=== PATIENT | female | born 1945 | race Caucasian/White ===

== ENCOUNTER 2021-02-27 18:07 | Outpatient (CLI) | payer MEDICARE | END 2021-02-27 18:08 | disposition critical access hospital (66) | LOC: EMS 18:07 | DX: R55 Syncope and collapse (principal) | CPT/HCPCS: A0425; A0427 ==

== ENCOUNTER 2021-02-27 18:44 | Emergency (ER) | payer MEDICARE ==
[2021-02-27] MEDS ORDERED: SODIUM CHLORIDE 0.9% 1,000 ML IV STA (19:17)
[2021-02-27 19:30] LABS: BASOPHILS % (AUTO) 0.4 %; EOSINOPHILS # (AUTO) 0.1 10^3/uL (0.0-0.7); EOSINOPHILS % (AUTO) 1.2 %; HCT - HEMATOCRIT 42.5 % (37.0-47.0); HGB - HEMOGLOBIN 13.4 g/dL (12.0-16.0); LYMPHOCYTES # (AUTO) 1.4 10^3/uL (1.5-3.5); LYMPHOCYTES % (AUTO) 16.3 %; MEAN CORPUSCULAR HEMOGLOBIN 28.3 pg (27.0-31.0); MEAN CORPUSCULAR HGB CONC 31.5 g/dL (32.0-36.0); MEAN CORPUSCULAR VOLUME 89.7 fL (81.0-99.0); MEAN PLATELET VOLUME 9.4 fL (7.9-10.8); MONOCYTES # (AUTO) 0.7 10^3/uL (0.0-1.0); MONOCYTES % (AUTO) 8.4 %; NEUTROPHILS # (AUTO) 6.1 10^3/uL (1.5-6.6); NEUTROPHILS % (AUTO) 73.2 %; PLT - PLATELET COUNT 176 10^3/uL (130-450); RED BLOOD COUNT 4.74 10^6/uL (4.20-5.40); RED CELL DISTRIBUTION WIDTH 12.9 % (12.0-15.0); WHITE BLOOD COUNT 8.3 x10^3/uL (4.8-10.8)
--- NOTE | 2021-02-27 19:36 | XRAY Report ---
PROCEDURE: Chest 1 View X-Ray INDICATIONS: Chest Pain TECHNIQUE: One view of the chest was acquired. COMPARISON: None FINDINGS: Surgical changes and devices: None. Lungs and pleura: No pleural effusions or pneumothorax. Lungs are clear. Mediastinum: Mediastinal contours appear normal. Heart size is enlarged. Bones and chest wall: No suspicious bony lesions. Overlying soft tissues appear unremarkable. IMPRESSION: No acute cardiopulmonary pathology. Reviewed by: Ezio Díaz MD on 02/27/2021 7:35 PM PDT Approved by: Ezio Díaz MD on 02/27/2021 7:35 PM PDT Station ID: [id number]
[2021-02-27 19:41] LABS: ALBUMIN/GLOBULIN RATIO 1.6 (1.0-2.2); BILIRUBIN,TOTAL 1.2 mg/dL (0.2-1.0); CALCIUM 9.3 mg/dL (8.5-10.3); CREATININE 0.8 mg/dL (0.4-1.0); POTASSIUM 4.2 mmol/L (3.5-5.0); TOTAL PROTEIN 6.5 g/dL (6.7-8.2)
--- NOTE | 2021-02-27 19:41 | ED Physician Documentation ---
History of Present Illness - Stated complaint Stated Complaint: SYNCOPE - Chief complaint Chief Complaint: Neuro - History obtained from History obtained from: Patient - History of Present Illness Timing: Today Pain level max: 0 Pain level now: 0 - Additonal information Additional information: Patient is a 75-year-old female who presents to the emergency department stating that she had a syncopal event today. 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 Has not eaten anything since yesterday. She states she did have a glass of water earlier today but is otherwise not had anything to drink. She states that she did have a syncopal event. Bystanders states she was out for 1 to 2 seconds. EMS arrived and blood pressure was low. She is diabetic. Nothing makes it better or worse. Currently feels normal. Review of Systems Ten Systems: 10 systems reviewed and negative Constitutional: denies: Fever, Chills Nose: denies: Rhinorrhea / runny nose, Congestion GI: denies: Nausea, Vomiting, Diarrhea Skin: denies: Rash Musculoskeletal: denies: Neck pain, Back pain Neurologic: denies: Headache PD PAST MEDICAL HISTORY - Allergies Allergies/Adverse Reactions: Allergies Allergy/AdvReac Type Severity Reaction Status Date / Time No Known Drug Allergies Allergy Verified 02/27/21 18:54 PD ED PE NORMAL - Vitals Vital signs reviewed: Yes - General General: Alert and oriented X 3, No acute distress, Well developed/nourished - HEENT HEENT: PERRL, Moist mucous membranes - Neck Neck: Supple, no meningeal sign, No JVD, No bruit - Cardiac Cardiac: RRR, No murmur, Strong equal pulses - Respiratory Respiratory: No respiratory distress, Clear bilaterally - Abdomen Abdomen: Soft, Non tender, Non distended - Derm Derm: Warm and dry - Extremities Extremities: No edema, No calf tenderness / cord - Neuro Neuro: Alert and oriented X 3, 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, No motor deficit, No sensory deficit, Normal speech Eye Opening: Spontaneous Motor: Obeys Commands Verbal: Oriented GCS Score: 15 - Psych Psych: Normal mood, Normal affect - Free text exam Free text exam: NIH stroke scale of zero Results - Vitals Vitals: Vital Signs - 24 hr 02/27/21 02/27/21 02/27/21 18:48 20:00 20:24 Temperature 36.6 C 36.5 C Heart Rate 68 74 72 Respiratory 16 20 15 Rate Blood Pressure 118/63 124/65 122/68 O2 Saturation 99 98 100 Oxygen O2 Source Room air - EKG (time done) 1929 Rate: Rate (enter#) (68) Rhythm: NSR [place]: Normal Intervals: Normal VA QRS: Normal Ischemia: Normal ST segments, Q waves (III, aVF, v1-2) - Labs Labs: Laboratory Tests 02/27/21 02/27/21 02/27/21 19:23 19:23 19:23 WBC 8.3 RBC 4.74 Hgb 13.4 Hct 42.5 MCV 89.7 MCH 28.3 MCHC 31.5 L RDW 12.9 Plt Count 176 MPV 9.4 Neut # (Auto) 6.1 Lymph # (Auto) 1.4 L [place] # (Auto) 0.7 Eos # (Auto) 0.1 Baso # (Auto) 0.0 Absolute Nucleated RBC 0.00 Nucleated RBC % 0.0 Sodium 137 Potassium 4.2 Chloride 101 Carbon Dioxide 26 Anion Gap 10.0 BUN 16 Creatinine 0.8 Estimated GFR (MDRD) 70 L Glucose 149 H Calcium 9.3 Total Bilirubin 1.2 H AST 22 ALT 23 Alkaline Phosphatase 69 Troponin I High Sens 3.1 Total Protein 6.5 L Albumin 4.0 Globulin 2.5 Albumin/Globulin Ratio 1.6 Lipase 36 - Rads (name of study) cxr Radiology: Final report received, EMP read contemporaneously, See rad report (No acute cardiopulmonary pathology. ) PD MEDICAL DECISION MAKING - ED course Complexity details: reviewed results, re-evaluated patient, considered differential, d/w patient ED course: Patient feels better after IV fluids and eating. Asymptomatic here. Likely related to not eating for the past 24 hours combined with cooking or a hot stove. Blood pressure improved, reportedly low with EMS on scene. Improved with IV fluids here. Patient does not want to stay in the hospital for observation and telemetry monitoring. She states she will follow up with her doctor for further care. Has never passed out before. Patient counseled r egarding signs and symptoms for which I believe and urgent re-evaluation would be necessary. Patient with good understanding of and agreement to plan and is comfortable going home at this time This document was made in part using voice recognition software. While efforts are made to proofread this document, sound alike and grammatical errors may occur. Departure - Departure Disposition: 01 Home, Self Care Clinical Impression: Vasovagal episode Syncope Qualifiers: Syncope type: vasovagal syncope Qualified Code(s): R55 - Syncope and collapse Condition: Good Instructions: ED Syncope Vasovagal Follow-Up: MAMTA LE PA [Primary Care Provider] - Within 1 week Comments: Make sure to eat and drink regularly. Please follow-up with your doctor this week for further evaluation. Return if you worsen. Discharge Date/Time: 02/27/21 20:25
[2021-02-27 20:25] VITALS: BP 122/68
== END 2021-02-27 20:25 | disposition home or self-care (01) ==
LOC: ED 18:44
DX: R55 Syncope and collapse (principal); E11.9 Type 2 diabetes mellitus without complications
CPT/HCPCS: 36415; 80053; 83690; 84484; 85025; 93005; 99284

== ENCOUNTER 2022-04-22 11:11 | Emergency (ER) | payer MEDICARE ==
--- NOTE | 2022-04-22 11:53 | XRAY Report ---
PROCEDURE: Shoulder 3 View LT INDICATIONS: trauma TECHNIQUE: 3 views of the shoulder were acquired. COMPARISON: None. FINDINGS: Bones: Moderately displaced and angled glide fracture of the humeral head/neck. No suspicious bony le sions. Visualized ribs appear intact. Soft tissues: No suspicious soft tissue calcifications. IMPRESSION: Proximal humeral fracture as above. Reviewed by: Hilary Phipps MD on 04/22/2022 11:51 AM PDT Approved by: Hilary Phipps MD on 04/22/2022 11:51 AM PDT Station ID: [id number]
[2022-04-22] MEDS ORDERED: HYDROmorphone 1 MG/ML CARPUJECT IM STA ×2 (11:54→12:28)
[2022-04-22] MEDS ORDERED: ONDANSETRON ODT 4 MG TABLET TL STA (11:54)
--- NOTE | 2022-04-22 11:56 | ED Physician Documentation ---
History of Present Illness - Stated complaint Stated Complaint: FALL - Chief complaint Chief Complaint: Trauma Ext - History obtained from History obtained from: Patient, Family - Additonal information Additional information: 77-year-old woman presents for the evaluation of mostly left shoulder pain after a fall. Most of the history is from the as he prefers to speak, wonder if she may be mildly demented,. She was ambulating into the carport and there is a small ledge there with a change in surface and she fell forward into her left. She hit her head and had a wound on the left adventism from her glasses which broke. There was no loss of consciousness and she denies headache. Mostly the pain is in her left shoulder which is severe. She also has an abrasion on the right knee but no pain there and she has been ambulatory. Review of Systems Constitutional: reports: Reviewed and negative Eyes: reports: Reviewed and negative Cardiac: reports: Reviewed and negative Respiratory: reports: Reviewed and negative PD PAST MEDICAL HISTORY - Present Medications Home Medications: Ambulatory Orders Medication Instructions Recorded Confirmed HYDROcod/ACETAM 5/325 [[place] 5/325] 1 - 2 tab PO Q6H PRN #30 tablet 04/22/22 - Allergies Allergies/Adverse Reactions: Allergies Allergy/AdvReac Type Severity Reaction Status Date / Time No Known Drug Allergies Allergy Verified 04/22/22 11:21 PD ED PE NORMAL - Vitals Vital signs reviewed: Yes - General General: Alert and oriented X 3, No acute distress - HEENT HEENT: PERRL, EOMI, Other (There is a puncture wound on the left adventism which is hemostatic.) - Neck Neck: Supple, no meningeal sign, No bony TTP - Cardiac Cardiac: RRR, No murmur - Respiratory Respiratory: No respiratory distress, Clear bilaterally - Abdomen Abdomen: Normal bowel sounds, Soft, Non tender - Back Back: No CVA TTP, No spinal TTP - Derm Derm: Normal color, Warm and dry - Extremities Extremities: Other (She is unable to range the left shoulder at all due to pain and she is exquisitely tender over the proximal humerus there. She has normal neurovascular function in the left hand. There is an abrasion over the left knee but absolutely no tenderness or limited range of motion there.) - Neuro Neuro: Alert and oriented X 3, Normal speech Eye Opening: Spontaneous Motor: Obeys Commands Verbal: Oriented GCS Score: 15 Results - Vitals Vitals: Vital Signs - 24 hr 04/22/22 11:17 Temperature 36.4 C L Heart Rate 62 Respiratory 16 Rate Blood Pressure 161/73 H O2 Saturation 97 Oxygen O2 Source Room air - Rads (name of study) Three-view x-ray of the left shoulder demonstrates a displaced and angled humeral head and neck fracture. Radiology: EMP read contemporaneously CT of the head and cervical spine are negative for injury. Radiology: EMP read contemporaneously PD MEDICAL DECISION MAKING - ED course ED course: 77-year-old woman presents after ground-level fall, she has signs of a mild head injury but CT imaging there is negative. She does have a shoulder fracture in the proximal humerus and was placed in a sling after pain control and discussed need for follow-up, mostly with her as she is seemingly demented. Departure - Departure Disposition: 01 Home, Self Care Clinical Impression: Closed fracture of left proximal humerus Qualifiers: Encounter type: initial encounter Fracture alignment: displaced Head injury Qualifiers: Encounter type: initial encounter Qualified Code(s): S09.90XA - Unspecified injury of head, initial encounter Condition: Good Record reviewed to determine appropriate education?: Yes Instructions: ED Fx Upper Ext Follow-Up: [facility] [Provider Group] - Within 1 week Prescriptions: HYDROcod/ACETAM 5/325 [[place] 5/325] 1 - 2 tab PO Q6H PRN #30 tablet PRN Reason: Pain Comments: I sent your prescription for pain medication electronically to the [facility] in [place]. If pain is mild you can simply take Tylenol per package instructions. Follow-up with the orthopedist, call today for an appointment within a week to 10 days. Return for new or worsening symptoms. I am prescribing a short course of narcotic pain medication for you. These are potentially dangerous and addictive medications that should be used carefully. These medications may constipate you. Take an cnni-ncj-jbtduat stool softener (docusate) twice daily with plenty of water while taking these medications. If you go 24 hours without a bowel movement, take hcwn-yxf-wgeopgg miralax, per package instructions. Do not drink or drive while taking these medications. If you received narcotic or sedating medications while in the emergency department, do not drive for 24 hours. Store this medication in a safe, secure place and out of reach of children. It is a violation of federal law to give or sell this medication to another person or to use in a manner other than prescribed. The ED will not refill narcotic prescriptions, including prescriptions lost or stolen. To dispose of unwanted medications: 1. [facility] at [address] in [place] has a medication drop box. They accept prescription medications (in pill form) Tuesday through Tuesday 9:00 a.m. to 5:00 p.m. 2. The [facility] accepts prescription medications (in pill form only) for disposal year round. Call for more information. 3. Contact the [facility] for the next [facility] sponsored prescription drug collection event. , [phone], or [phone]; Note that many narcotic pain relievers also contain Tylenol/acetaminophen. Please ensure that your total dose of acetaminophen from all sources does not exceed 3 g (3000 mg) per day.
--- NOTE | 2022-04-22 12:42 | CT Report ---
PROCEDURE: HEAD WO INDICATIONS: head inj TECHNIQUE: Noncontrast 4.5 mm thick angled axial sections acquired from the foramen magnum to the vertex. For r adiation dose reduction, the following was used: automated exposure control, adjustment of mA and/or kV according to patient size. COMPARISON: None. FINDINGS: Image quality: Excellent. CSF spaces: Basal cisterns are patent. No extra-axial fluid collections. Ventricles are normal in size and shape. Brain: No midline shift. No intracranial masses or hemorrhage. [place]-white matter interface is norm al. Skull and face: Calvarium and visualized facial bones are intact, without suspicious lesions. Sinuses: Visualized sinuses and mastoids are clear. IMPRESSION: No acute intracranial abnormality. Reviewed by: Hilary Phipps MD on 04/22/2022 12:41 PM PDT Approved by: Hilary Phipps MD on 04/22/2022 12:41 PM PDT Station ID: [id number]
--- NOTE | 2022-04-22 12:43 | CT Report ---
PROCEDURE: CERVICAL SPINE WO INDICATIONS: head inj TECHNIQUE: Noncontrast 3 mm thick sections acquired from the skull base to the T4 level. Sagittal and coronal r eformats were then constructed. For radiation dose reduction, the following was used: automated exp osure control, adjustment of mA and/or kV according to patient size. COMPARISON: None. FINDINGS: Image quality: Excellent. Bones: No fractures or dislocations. Visualized superior ribs are intact. Soft tissues: Prevertebral soft tissues are normal in thickness. No paravertebral hematomas. No ap ical pneumothoraces. IMPRESSION: No fracture. Reviewed by: Hilary Phipps MD on 04/22/2022 12:42 PM PDT Approved by: Hilary Phipps MD on 04/22/2022 12:42 PM PDT Station ID: [id number]
[2022-04-22 13:21] VITALS: BP 179/77
== END 2022-04-22 13:20 | disposition home or self-care (01) ==
LOC: ED 11:11
DX: S09.90XA Unspecified injury of head, initial encounter (principal); S42.202A Unspecified fracture of upper end of left humerus, initial encounter for closed fracture; W01.0XXA Fall on same level from slipping, tripping and stumbling without subsequent striking against object, initial encounter
CPT/HCPCS: 70450; 72125; 73030; 99284; J1170; Q0162

== ENCOUNTER 2022-06-08 08:00 | Outpatient (CLI) | payer MEDICARE ==
--- NOTE | 2022-06-08 15:48 | XRAY Report ---
PROCEDURE: Shoulder 3 View LT INDICATIONS: LEFT SHOULDER FRACTURE TECHNIQUE: 3 views of the shoulder were acquired. COMPARISON: 04/22/2022. FINDINGS/IMPRESSION: No significant change in alignment of highly comminuted intra-articular, displaced, angulated left hu meral head/neck fracture when compared with 04/22/2022 exam. Reviewed by: Americo Singleton MD on 06/08/2022 3:46 PM PDT Approved by: Americo Singleton MD on 06/08/2022 3:46 PM PDT Station ID: [id number]
== END 2022-06-08 23:59 | disposition home or self-care (01) ==
LOC: DI.WOS 08:00
PROVIDERS: ATTEND Physician Assistant Surgical
DX: S42.232D 3-part fracture of surgical neck of left humerus, subsequent encounter for fracture with routine healing (principal)

== ENCOUNTER 2022-07-20 12:38 | Outpatient (CLI) | payer MEDICARE ==
--- NOTE | 2022-07-20 13:22 | DEXA Report ---
PROCEDURE: Dexa Spine and/or Hip INDICATIONS: SCREENING FOR OSTEOPOROSIS TECHNIQUE: Dual energy x-ray absorptiometry (DXA) was performed on a Biom'Up System. Regions measur ed are the AP Spine, femoral neck, and if needed forearm. COMPARISON: None. FINDINGS: Lumbar Spine: Bone Mineral Density 1.140 g/cm/cm,T score -0.5, normal Left Femoral Neck: Bone Mineral Density 0.802 g/cm/cm, T score -1.7, osteopenia Left total Hip: Bone Mineral Density 0.851 g/cm/cm,T score -1.2, osteopenia (T score greater or equal to -1.0: NORMAL) (T score from -1.1 to -2.4: OSTEOPENIA) (T score less than or equal to -2.5 to: OSTEOPOROSIS) Impression: Osteopenia Patients with diagnosis of osteoporosis or osteopenia should have regular bone mineral density assess ment. For those eligible for Medicare, routine testing is allowed once every 2 years. Testing frequ ency can be increased for patients who have rapidly progressing disease or for those who are receivin g medical therapy to restore bone mass. Reviewed by: Sree Ingram on 07/20/2022 1:21 PM PST Approved by: Sree Ingram on 07/20/2022 1:21 PM PST Station ID: [id number]
== END 2022-07-20 12:39 | disposition home or self-care (01) ==
LOC: DI 12:38
PROVIDERS: ATTEND Nurse Practitioner Family
DX: Z13.820 Encounter for screening for osteoporosis (principal); M85.89 Other specified disorders of bone density and structure, multiple sites

== ENCOUNTER 2024-11-22 12:35 | Observation (INO) ==
--- NOTE | 2024-11-22 12:43 | ED Physician Documentation ---
History of Present Illness Stated complaint Stated Complaint: CONFUSION Chief complaint Chief Complaint: General History obtained from History obtained from: Patient and EMS Additonal information Additional information: This is an 79-year-old woman with history of dementia, type 2 diabetes, who lives alone. She lost her about 2 months ago from pancreatic cancer and her son lives close by and checks on her frequently. Reportedly she was normal last night at 7 PM, but today she either fell or lowered herself to the ground without apparent injury and her son found her. [place] there was maybe some slur red speech. Patient has no complaints. [place] Coma Scale Assess Eye opening: Spontaneous Verbal response: Confused Motor response: Obeys Commands Total score: 14 Meds/Allgy Home Medications Ambulatory Orders Medication Instructions Recorded Confirmed sertraline 50 mg tablet 50 mg PO QDAY #30 tabs 10/31/24 11/21/24 antiarthritic combination no.2 900 mg PO 11/01/24 11/21/24 mg tablet (glucosamine-chondroitin) cholecalciferol (vitamin D3) 50 50 mcg PO QDAY 11/01/24 11/21/24 mcg (2,000 unit) capsule iinxgind-ahl-tqzkd acid 0.4 1 tab PO QDAY 11/01/24 11/21/24 mg-lycopene 300 mcg-lutein 250 mcg tablet (Complete Multivitamin Adult 50 Plus) nystatin 100,000 unit/gram topical 1 applic topical BID #30 grams 11/01/24 11/21/24 cream zinc oxide 12 % topical cream 1 applic topical TID 11/01/24 11/21/24 acetaminophen 500 mg tablet 500 - 1,000 mg (1 - 2 x 500 mg) PO 11/21/24 11/21/24 Q6H PRN pain #100 tabs Allergies Allergies Allergy/AdvReac Type Severity Reaction Status Date / Time No Known Drug Allergies Allergy Verified 11/22/24 12:46 PFSH Active Problems All Active Problems (Updated 11/22/24 @ 16:11 by Diego Coy MD) Leukocytosis (Acute) Acute UTI (Acute) Encephalopathy (Acute) Heart murmur (Acute) Osteoarthritis of right knee (Acute) Type 2 diabetes mellitus (Acute) Candidal intertrigo (Acute) Dementia with mood disturbance (Acute) Right knee pain (Acute) Medical History Medical History (Updated 11/22/24 @ 16:11 by Diego Coy MD) History of skin cancer of unknown type Large excision site left lateral knee region Cognitive deficits History of recent fall Family History Family History (Updated 11/01/24 @ 12:13 by RYAN Guillen, MSN) Mother Cancer Father Cancer Social History Social History (Updated 11/01/24 @ 12:12 by RYAN Guillen, MSN) Smoking Status: Former smoker If you are a former smoker, when did you quit? 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 When I ask her the month she says first January, then corrects herself to February, cannot come up with the year but cannot state who the president is. Eyes PERRL and EOMs intact bilaterally Respiratory breath sounds equal bilaterally, normal respiratory effort and clear to auscultation bilaterally Cardiovascular normal heart rate noted, regular rhythm noted and no murmur Gastrointestinal abdomen soft to palpation and nontender to palpation Genitourinary no CVA tenderness Back/Pelvis no thoracic spine tenderness and no lumbar spine tenderness Neurology GCS calculation - Eye opening: Spontaneous Verbal response: Confused Motor response: Obeys Commands [place] Coma Scale total score: 14 Results Vitals Vitals: Vital Signs - 24 hr 11/22/24 12:41 11/22/24 13:15 11/22/24 14:49 Temperature 36.0 C L Temperature Source Tympanic Pulse Rate 63 57 L 76 Respiratory Rate 18 17 15 Blood Pressure 142/74 H 163/74 H 163/70 H O2 Saturation 96 98 95 O2 Source Room air Room air Room air Pain Intensity 0 0 0 Oxygen O2 Source Room air EKG (time done) 1247: EKG releavant findings:: EKG personally interpreted by author of this note. Relevant findings are: Normal sinus rhythm with rate of 60 with frequent PACs, borderline LAD, low voltage, no ST elevation or depression. Labs Labs: Laboratory Tests 11/22/24 11/22/24 12:54 13:11 WBC 12.2 H RBC 4.85 Hgb 14.3 Hct 43.7 MCV 90.1 MCH 29.5 MCHC 32.7 RDW 11.8 L Plt Count 196 MPV 9.3 Neut # (Auto) 10.1 H Lymph # (Auto) 1.0 L [place] # (Auto) 1.0 Eos # (Auto) 0.0 Baso # (Auto) 0.0 Absolute Nucleated RBC 0.00 Nucleated RBC % 0.0 Sodium 137 Potassium 3.6 Chloride 105 Carbon Dioxide 25 Anion Gap 7.0 BUN 20 Creatinine 0.7 Estimated GFR (MDRD) 80 L Glucose 177 H Calcium 9.7 Magnesium 1.8 Total Bilirubin 0.9 AST 24 ALT 21 Alkaline Phosphatase 81 Total Protein 6.7 Albumin 4.1 Globulin 2.6 Albumin/Globulin Ratio 1.6 Urine Color YELLOW Urine Clarity SL. CLOUDY Urine pH 6.0 Ur Specific [place] 1.025 Urine Protein NEGATIVE Urine Glucose (UA) NEGATIVE Urine Ketones 40 H Urine Occult Blood NEGATIVE Urine Nitrite NEGATIVE Urine Bilirubin NEGATIVE Urine Urobilinogen 0.2 (NORMAL) Ur Leukocyte Esterase MODERATE H Urine RBC 0-5 Urine WBC 11-25 H Ur Squamous Epith Cells FEW Squamous Urine Bacteria Many H Ur Microscopic Review INDICATED Urine Culture Comments INDICATED Urine Opiates Screen NEGATIVE Ur Buprenorphine Scrn NEGATIVE Ur Oxycodone Screen NEGATIVE Urine Methadone Screen NEGATIVE Ur Barbiturates Screen NEGATIVE Ur Tricyclics Screen NEGATIVE Ur Phencyclidine Scrn NEGATIVE Ur Amphetamine Screen NEGATIVE U Methamphetamines Scrn NEGATIVE U Benzodiazepines Scrn NEGATIVE Urine Cocaine Screen NEGATIVE U Cannabinoids Screen NEGATIVE Ur Drug Screen Comment CUTOFF CONC BELOW: Ethyl Alcohol < 10.0 Rads (name of study) CT/CTA negative per Dr. Graf by phone (PACS is down so no formal read available).: Relevant Findings:: Prelim report reviewed, Discussed with rads and EMP independent interpretation of test (NAD) PD Medical Decision Making ED course ED course: This is an 79-year-old woman with dementia who appears off of her neurologic baseline. I do not personally seen any sign of stroke, but it is in the differential. Last known normal 7 PM last night. She has a nonlateralizing/nonfocal exam. I do not think she is a tPA candidate. Labs done showing mild leukocytosis, pyuria, negative drug screening, unremarkable CMP save mild hyperglycemia. Son arrived and noted that she was orthostatic prehospital which was not reported to me from EMS. Will start fluids and antibiotics pending CT radiography. CT radiography was negative, given the leukocytosis, encephalopathy, and UTI we will bring her in to obs status to monitor for improvement. Spoke with KURTIS Fontaine for same at 4:05 PM. The patient and family are counseled as to the diagnosis and need for admission. This document was made in part using voice recognition software, while efforts are made to proofread this document, sound alike an grammatical errors may occur. Discharge Plan Discharge Patient Disposition: ED Place in Observation Condition: Fair Clinical Impression: Encephalopathy, Acute UTI, Leukocytosis Dementia with mood disturbance Qualifiers: Dementia type: Alzheimer's Alzheimer's disease onset: unspecified onset Dementia severity: moderate Qualified Code(s): G30.9 - Alzheimer's disease, unspecified Interventions: ED Admission Assessment Last Done: 11/22/24 18:11
[2024-11-22 12:59] LABS: BASOPHILS % (AUTO) 0.3 %; EOSINOPHILS % (AUTO) 0.1 %; HCT - HEMATOCRIT 43.7 % (37.0-47.0); HGB - HEMOGLOBIN 14.3 g/dL (12.0-16.0); LYMPHOCYTES % (AUTO) 7.9 %; MEAN CORPUSCULAR HEMOGLOBIN 29.5 pg (27.0-31.0); MEAN CORPUSCULAR HGB CONC 32.7 g/dL (32.0-36.0); MEAN CORPUSCULAR VOLUME 90.1 fL (81.0-99.0); MEAN PLATELET VOLUME 9.3 fL (7.9-10.8); MONOCYTES % (AUTO) 8.1 %; NEUTROPHILS # (AUTO) 10.1 10^3/uL (1.5-6.6); NEUTROPHILS % (AUTO) 83.2 %; PLT - PLATELET COUNT 196 10^3/uL (130-450); RED BLOOD COUNT 4.85 10^6/uL (4.20-5.40); RED CELL DISTRIBUTION WIDTH 11.8 % (12.0-15.0); WHITE BLOOD COUNT 12.2 x10^3/uL (4.8-10.8)
[2024-11-22] MEDS ORDERED: iohexoL-300 100 ML VIAL ONE (13:00)
--- OUTSIDE RECORDS SUMMARY | 2024-11-22 13:00 | EXTERNAL MEDICAL SUMMARY RPT | Continuity of Care Document ---
Author Organization [facility] Address [address] [place] [id number] Phone Problems date description facility 2024-09-01 00:01 Other symptoms and s igns involving cognitive functions and awareness [facility] 2024-09-01 00:01 History of falling [facility] 2024-09-12 09:21 Pain in right knee [facility] 2024-11-01 12:12 Unspecified dementia , unspecified severity, with mood disturbance [email or web address] 2024-11-01 12:25 Unspecified dementia , unspecified severity, with mood disturbance [email or web address] 2024-11-06 10:52 Candidiasis of skin and nail [email or web address] 2024-11-06 10:52 Type 2 diabetes mellitus withou t complications [email or web address] 2024-11-06 10:52 Dementia in other di seases classified elsewhere, moderate, with mood disturbance [email or web address] 2024-11-06 10:52 Unspecified dementia , unspecified severity, with mood disturbance [email or web address] 2024-11-06 10:52 Alzheimer's disease, unspecifie d [email or web address] 2024-11-06 10:52 Unilateral primary osteoarthrit is, right knee [email or web address] 2024-11-06 10:52 Encounter for palliative care [facility] 2024-11-06 10:52 Personal history of other malig nant neoplasm of skin [facility] 2024-11-19 08:40 Encounter for palliative care [facility] Social History date description facility
[2024-11-22 13:13] LABS: ALBUMIN 4.1 g/dL (3.2-5.5); ALBUMIN/GLOBULIN RATIO 1.6 (1.0-2.2); ALKALINE PHOSPHATASE 81 IU/L (42-121); ALT ALANINE AMINOTRANSFERASE 21 IU/L (10-60); AST ASPARTATE AMINOTRANSFERASE 24 IU/L (10-42); BILIRUBIN,TOTAL 0.9 mg/dL (0.2-1.0); BUN - BLOOD UREA NITROGEN 20 mg/dL (6-20); CALCIUM 9.7 mg/dL (8.5-10.3); CARBON DIOXIDE - CO2 25 mmol/L (21-32); CHLORIDE 105 mmol/L (101-111); CREATININE 0.7 mg/dL (0.6-1.3); ETOH - ETHANOL < 10.0 mg/dL; GFR - MDRD 80 (>89); GLUCOSE 177 mg/dL (74-104); MAGNESIUM 1.8 mg/dL (1.7-2.3); POTASSIUM 3.6 mmol/L (3.5-4.5); SODIUM 137 mmol/L (135-145); TOTAL PROTEIN 6.7 g/dL (6.4-8.9)
[2024-11-22 13:26] LABS: BILIRUBIN,URINE NEGATIVE (NEGATIVE); GLUCOSE, URINE (UA) NEGATIVE (NEGATIVE); KETONES,URINE (UA) 40 mg/dL (NEGATIVE); LEUKOCYTE ESTERASE, URINE MODERATE (NEGATIVE); NITRITE,URINE NEGATIVE (NEGATIVE); OCCULT BLOOD,URINE NEGATIVE (NEGATIVE); PROTEIN,URINE NEGATIVE (NEGATIVE); UROBILINOGEN,URINE 0.2 (NORMAL) E.U./dL (NORMAL)
[2024-11-22 13:29] LABS: CLARITY,URINE SL. CLOUDY (CLEAR)
[2024-11-22 13:40] LABS: AMPHETAMINE SCREEN,URINE NEGATIVE (NEGATIVE); BACTERIA,URINE Many /HPF (None Seen); BARBITURATE SCREEN,UR NEGATIVE (NEGATIVE); BENZODIAZEPINES SCREEN, URINE NEGATIVE (NEGATIVE); BUPRENORPHINE SCREEN, URINE NEGATIVE (NEGATIVE); COCAINE SCREEN URINE NEGATIVE (NEGATIVE); METHADONE SCREEN, URINE NEGATIVE (NEGATIVE); METHAMPHETAMINES SCREEN, URINE NEGATIVE (NEGATIVE); OPIATE SCREEN, URINE NEGATIVE (NEGATIVE); OXYCODONE SCREEN, URINE NEGATIVE (NEGATIVE); RBC,URINE 0-5 /HPF (0-5); SQUAMOUS EPITHELIAL CELL,UR FEW Squamous (<= Few); THC CANNABINOID SCREEN, URINE NEGATIVE (NEGATIVE); TRICYCLIC ANTIDEPRESSANT,URINE NEGATIVE (NEGATIVE)
[2024-11-22] MEDS: cefTRIAXone 1 GM VIAL IVP STA (13:53)
[2024-11-22] MEDS: SODIUM CHLORIDE 0.9% 1,000 ML IV STA (13:53)
[2024-11-22] MEDS: iohexoL-300 100 ML VIAL IVP ONE (14:00)
[2024-11-22] MEDS ORDERED: ONDANSETRON 4 MG/2 ML VIAL IVP PRN ×2 (16:03→18:19)
--- NOTE | 2024-11-22 17:14 | HISTORY & PHYSICAL EXAMINATION ---
Chief Complaint Chief Complaint Chief Complaint: Fall History of Present Illness Admitted From Admitted From:: Home History Obtained From History obtained from: Patient Exam Limitations: Moderate dementia History of Present Illness HPI Comment/Other: 79-year-old female who recently lost her to pancreatic cancer. Her cared for at home and had taken over many of the administrative household tasks as she is slowly been developing dementia. She is seen by palliative care, with last visit yesterday. There is a note from her primary care physician from 08/24/2024, where she underwent [place] cognitive assessment with a score of 17 out of 30 indicating moderate dementia. Family reported multiple falls to her palliative care provider without injury. Family is in the process of getting her moved to a memory care unit, but patient adamantly refuses this. She was found down this morning by her caregiver and brought into the hospital. Son reports that her mentation is worse than normal. In the ER, workup was significant for UTI. She was given 1 g of Rocephin in the ER and hospitalist was contacted for observation for delirium on top of baseline moderate dementia Meds/Allgy Home Medications Ambulatory Orders Medication Instructions Recorded Confirmed sertraline 50 mg tablet 50 mg PO QDAY #30 tabs 10/31/24 11/21/24 antiarthritic combination no.2 900 mg PO 11/01/24 11/21/24 mg tablet (glucosamine-chondroitin) cholecalciferol (vitamin D3) 50 50 mcg PO QDAY 11/01/24 11/21/24 mcg (2,000 unit) capsule zlkeestd-nrk-vopqe acid 0.4 1 tab PO QDAY 11/01/24 11/21/24 mg-lycopene 300 mcg-lutein 250 mcg tablet (Complete Multivitamin Adult 50 Plus) nystatin 100,000 unit/gram topical 1 applic topical BID #30 grams 11/01/24 11/21/24 cream zinc oxide 12 % topical cream 1 applic topical TID 11/01/24 11/21/24 acetaminophen 500 mg tablet 500 - 1,000 mg (1 - 2 x 500 mg) PO 11/21/24 11/21/24 Q6H PRN pain #100 tabs Allergies Allergies Allergy/AdvReac Type Severity Reaction Status Date / Time No Known Drug Allergies Allergy Verified 11/22/24 12:46 PFSH Active Problems All Active Problems (Updated 11/22/24 @ 16:11 by Diego Coy MD) Leukocytosis (Acute) Acute UTI (Acute) Encephalopathy (Acute) Heart murmur (Acute) Osteoarthritis of right knee (Acute) Type 2 diabetes mellitus (Acute) Candidal intertrigo (Acute) Dementia with mood disturbance (Acute) Right knee pain (Acute) Medical History Medical History (Updated 11/22/24 @ 16:11 by Diego Coy MD) History of skin cancer of unknown type Large excision site left lateral knee region Cognitive deficits History of recent fall Family History Family History (Updated 11/01/24 @ 12:13 by RYAN Guillen, MSN) Mother Cancer Father Cancer Social History Social History (Updated 11/01/24 @ 12:12 by RYAN Guillen, MSN) Smoking Status: Former smoker If you are a former smoker, when did you quit? 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 Denies any symptoms Prior Level of Functionality: Walks around with a walker at home. She has a private caregiver and she says she has many friends that can come help her Exam Exam Vital Signs: Vital Signs x48h Temp Pulse Resp BP Pulse Ox 11/22/24 14:49 76 15 163/70 H 95 11/22/24 13:15 57 L 17 163/74 H 98 11/22/24 12:41 36.0 C L 63 18 142/74 H 96 Constitutional Disheveled elderly female in no acute distress HENMT normocephalic and head/scalp atraumatic Eyes PERRL Neck/C-Spine visual inspection normal Lymph no lymphadenopathy noted Chest inspection of chest normal Respiratory breath sounds equal bilaterally and normal respiratory effort Cardiovascular normal heart rate noted and regular rhythm noted Gastrointestinal abdomen normal to inspection and abdomen soft to palpation Neurology Oriented to person and place. Declines answering questions on time, saying she does not keep track of it. When asked what season it was, she stated fall. Moves extremities appropriately Skin skin color normal Conclusion/Plan Problem List (1) Encephalopathy: Plan: She has history of dementia, this is an acute worsening possibly secondary to her UTI This encephalopathy has contributed to a fall Manage both as below (2) Acute UTI: Plan: UA with leukocyte Estrace, WBC, bacteria noted She received 1 g of Rocephin in the ER I am continuing 1 g Rocephin daily (3) Cognitive deficits: Plan: She has a known history of dementia which she denies. She says that the dementia diagnosis is unofficial and only came about a week ago. She states that her son is always making things up and wants to put her in at home. There is extensive documentation in the chart from multiple providers reflecting that she does indeed have moderate dementia with a MoCA score of 17 as of August of this year. This is interesting, as she states that she has not been to a doctor in forever. I convinced the patient that the best course of action would be for her to come into the hospital and receive IV antibiotics for her UTI so that we can establish what her normal level is and where to go from here. She is refusing placement, I am unsure of her capacity to make decisions at this point Plan Placed in observation She is requesting full code, no family at bedside to interview. No POLST on file. Maintaining full code until I can talk to her son who is her DPOA Lab Results Lab results reviewed: Yes 11/22/24 12:54 11/22/24 12:54 Core Measures Anticipated LOS I expect patient to be DC'd or transferred within 96 hours.: Yes DVT/VTE - Prophylaxis VTE/DVT Prophylaxis med ordered at admit?: Yes
--- NOTE | 2024-11-22 17:17 | CT Report ---
PROCEDURE: CT Head WO INDICATIONS: slurred speech TECHNIQUE: Noncontrast 4.5 mm thick angled axial sections acquired from the foramen magnum to the vertex. For r adiation dose reduction, the following was used: automated exposure control, adjustment of mA and/or kV according to patient size. COMPARISON: None. FINDINGS: Image quality: Excellent. CSF spaces: Basal cisterns are patent. No extra-axial fluid collections. Ventricles are normal in size and shape. Brain: No midline shift. No intracranial masses or hemorrhage. [place]-white matter interface is norm al. Intracranial carotid calcifications. Age-related volume loss and very mild, age-appropriate smal l vessel ischemic change. Skull and face: Calvarium and visualized facial bones are intact, without suspicious lesions. Sinuses: Visualized sinuses and mastoids are clear. IMPRESSION: No acute intracranial pathology. Comment: Initial interpretation was provided to the emergency department by Dr. Graf at the time of study completion. Final dictated report was delayed by issues with PACS. Reviewed by: Iglesia Lemon MD on 11/22/2024 5:16 PM PDT Approved by: Iglesia Lemon MD on 11/22/2024 5:16 PM PDT Station ID: [id number]
--- NOTE | 2024-11-22 17:21 | CT Report ---
PROCEDURE: CT Angio Head/Neck INDICATIONS: slurred speech TECHNIQUE: After the administration of intravenous contrast, 1 mm thick sections acquired from the aortic arch t hrough the [place] of [place]. 3-dimensional pttqibb-kbqnvcjyz-nbuwmuiywn (MIP) and/or volume renderin g reformats were acquired of the central intracranial vasculature and neck separately. For radiation dose reduction, the following was used: automated exposure control, adjustment of mA and/or kV acco rding to patient size. CONTRAST: 80 ML OMNI COMPARISON: CT head from the same date. FINDINGS: Image quality: Diagnostic. HEAD CT: CSF Spaces: Basal cisterns are patent. No extra-axial fluid collections. Ventricles are normal in size and shape. Brain: No significant abnormality is seen for scanning technique. Skull and face: Calvarium and visualized facial bones appear intact, without suspicious lesions. Sinuses: Visualized sinuses and mastoids are clear. HEAD CT ANGIOGRAPHY: Anterior circulation: Intracranial internal carotid arteries are normal in size and flow. The flow within the paired anterior cerebral arteries is normal and symmetric. The flow within the middle cer ebral arteries is normal and symmetric. The anterior communicating artery is seen. No aneurysms are seen. Posterior circulation: Normal variant diminutive right vertebral artery ends in PICA. Left vertebral artery is dominant and widely patent, giving rise to normal caliber basilar artery. Flow within the p osterior cerebral arteries is normal and symmetric. No aneurysms are seen. NECK CT ANGIOGRAPHY: Carotid system: The great vessels demonstrate a conventional anatomy as they arise from the aortic a rch. The origins of the common carotid arteries appear patent. The common carotid arteries demonstr ate normal caliber and courses. The bifurcation regions are both widely patent. The internal caroti d arteries demonstrate normal calibers and courses. Posterior circulation: Normal variant diminutive right vertebral artery ends in PICA. Left vertebral artery is dominant and widely patent, giving rise to normal caliber basilar artery. Soft tissues: Visualized neck soft tissues demonstrate no suspicious abnormalities. Bones: No suspicious bony lesions. Visualized cervical spine appears normally aligned. IMPRESSION: No significant intracranial arterial abnormality is seen. Normal variant diminutive right vertebral artery ending in PICA. No significant abnormality is seen within the arteries of the neck. Comment: Initial interpretation provided by Dr. Graf to the emergency department at the time of [facility] completion. Final dictation delayed by issues with the PACS system. The estimate of stenosis included in the report of the imaging study was calculated using the NASCET method Reviewed by: Iglesia Lemon MD on 11/22/2024 5:20 PM PDT Approved by: Iglesia Lemon MD on 11/22/2024 5:20 PM PDT Station ID: [id number]
[2024-11-22] MEDS ORDERED: ONDANSETRON ODT 4 MG TABLET TL PRN (18:19)
[2024-11-22] MEDS ORDERED: ACETAMINOPHEN 325 MG TABLET PO PRN (18:19)
[2024-11-22] MEDS ORDERED: SODIUM CHLORIDE FLUSH 0.9% 10 ML SYRINGE IVP PRN (18:19)
[2024-11-22] MEDS: SODIUM CHLORIDE FLUSH 0.9% 10 ML SYRINGE IVP SCH (18:35)
[2024-11-23 04:56] LABS: BASOPHILS % (AUTO) 0.5 %; EOSINOPHILS # (AUTO) 0.2 10^3/uL (0.0-0.7); EOSINOPHILS % (AUTO) 2.2 %; HCT - HEMATOCRIT 39.9 % (37.0-47.0); LYMPHOCYTES # (AUTO) 1.7 10^3/uL (1.5-3.5); LYMPHOCYTES % (AUTO) 20.4 %; MEAN CORPUSCULAR HEMOGLOBIN 29.3 pg (27.0-31.0); MEAN CORPUSCULAR HGB CONC 32.6 g/dL (32.0-36.0); MEAN CORPUSCULAR VOLUME 90.1 fL (81.0-99.0); MEAN PLATELET VOLUME 10.1 fL (7.9-10.8); MONOCYTES # (AUTO) 0.9 10^3/uL (0.0-1.0); MONOCYTES % (AUTO) 10.9 %; NEUTROPHILS # (AUTO) 5.4 10^3/uL (1.5-6.6); NEUTROPHILS % (AUTO) 65.6 %; PLT - PLATELET COUNT 195 10^3/uL (130-450); RED BLOOD COUNT 4.43 10^6/uL (4.20-5.40); RED CELL DISTRIBUTION WIDTH 12.1 % (12.0-15.0); WHITE BLOOD COUNT 8.2 x10^3/uL (4.8-10.8)
[2024-11-23 05:11] LABS: CALCIUM 9.2 mg/dL (8.5-10.3); CREATININE 0.7 mg/dL (0.6-1.3); POTASSIUM 3.8 mmol/L (3.5-4.5)
[2024-11-23] MEDS: PANTOPRAZOLE 40 MG TABLET PO SCH (06:08)
[2024-11-23] MEDS: ENOXAPARIN 40 MG/0.4 ML SYRINGE SUBQ SCH (10:20)
--- NOTE | 2024-11-23 14:03 | OT Plan of Care ---
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 Brought in by her family. Workup was significant for UTI. Pt with recent diagnosis of Dementia. Met supine in bed, A&O to self and place only Confused but pleasant. Directable and appropriate during tasks however required cues for orientation and attention. Follows 100% commands. Performed supine to sit, sit to stand , and ambulation to/from bathroom using RW MIN A MIIN A UB, MOD A LB Adl with full set up and increased time 2/2 safety and fatigue. Overall presents with decreased endurance, activity tolerance and ADL status. Will benefit from cont OT services during acute stay. Rec d/c to SNF at this time. Goals - Activities of Daily Living Improve Upper Extremity Modified Independent Dressing to: Improve Lower Extremity Modified Independent Dressing to: Improve Grooming/Hygiene to: Modified Independent Improve Bathing to: Modified Independent Improve Toileting to: Modified Independent Plan Treatment Frequency 1x/day -Discharge Recommendations Discharge Location [facility] Transport Needs at Discharge Wheelchair van
--- NOTE | 2024-11-23 14:18 | PT Plan of Care ---
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 Brought in by her family. Workup was significant for UTI. PMH includes dementia. Pt was reportedly Y[place] at home but has been having increased difficulty with mobility at home. Upon PT eval, pt supine in bed, A&O to self and place only, confused but pleasant and directable. Pt benefits from mod to max cues for orientation and attention. Supine to sit, sit to stand, and ambulation x5' c FWW. Amb distance limited by pt fatigue, distractibility and weakness. Overall strength 3 /5 globally. Pt presents with reduced endurance, activity tolerance and balance impairments. Pt will benefit from skilled PT in acute setting. When medically clear, PT rec dc to SNF at this time and may benefit from transition to LTC after SNF stay. Goals Improve bed mobility to: Modified Independent Improve supine to sit to: Modified Independent Improve sit to stand to: Contact Guard Improve pivot transfer ability Contact Guard to: Improve sit to supine to: Contact Guard Improve gait ability to: CGA Assistive Device Used: Front Wheeled Walker PT Plan of Care Frequency 1-2x/day Duration Until goals are met Discharge Recommendations Discharge Location [facility] DC Equipment Recommended Front wheeled walker Transport Needs at Discharge Wheelchair van Other BLS d/t confusion/dementia
--- NOTE | 2024-11-23 14:39 | PHARMACY PROGRESS NOTE ---
Best Possible Medication History Admit Date and Time: 11/22/24 1710 Home Medications Medication Instructions Recorded Confirmed Type sertraline 50 mg tablet 50 mg PO QDAY #30 tabs 10/31/24 11/23/24 Rx cholecalciferol (vitamin D3) 50 50 mcg PO QDAY 11/01/24 11/23/24 History mcg (2,000 unit) capsule srltznks-odg-cneia acid 0.4 1 tab PO QDAY 11/01/24 11/23/24 History mg-lycopene 300 mcg-lutein 250 mcg tablet (Complete Multivitamin Adult 50 Plus) nystatin 100,000 unit/gram topical 1 applic topical BID #30 grams 11/01/24 11/23/24 Rx cream acetaminophen 500 mg tablet 500 - 1,000 mg (1 - 2 x 500 mg) PO 11/21/24 11/23/24 Rx Q6H PRN pain #100 tabs atorvastatin 40 mg tablet 40 mg PO QPM 11/23/24 11/23/24 History glipizide 5 mg tablet, extended 15 mg PO ONCE 11/23/24 11/23/24 History release 24 hr lisinopril 5 mg tablet 5 mg PO ONCE 11/23/24 11/23/24 History Processed by: Pharmacy Medications reviewed in ED?: No Medication History completed: Yes Patient Interview: Completed Secondary Source(s): Insurance records [facility] Statement: Per patient interview with pharmacist and review of [employer] insurance records. As the person ultimately responsible for medication therapy, providers are able to order a medication from an existing home medication list in [facility] via the "Reconcile Routine" prior to Confirmation of that medication by support services manager. Such practice is discouraged except when the physician, in their clinical judgment, deems that a medical need exists for a medication without regard to previous use.
--- NOTE | 2024-11-23 16:11 | PROVIDER PROGRESS NOTE ---
Subjective Prog Note Date Prog Note Date: 11/23/24 Subjective Pt reports feeling: No change Current Medications Current Medications Current Medications: Current Medications Generic Name Dose Route Start Last Admin Trade Name Freq PRN Reason Stop Dose Admin Acetaminophen 1,000 mg 11/22/24 16:03 Acetaminophen 500 Mg Tablet PO Q6H PRN Mild Pain Or Fever>38c(100.4f) Acetaminophen 650 mg 11/22/24 18:19 Acetaminophen 325 Mg Tablet PO Q4HR PRN Pain 1 to 4, or Fever Enoxaparin Sodium 40 mg 11/23/24 09:00 11/23/24 10:20 Enoxaparin 40 Mg/0.4 Ml Syringe SUBQ 40 mg DAILY NORAH Administration Ondansetron HCl 4 mg 11/22/24 18:19 Ondansetron Odt 4 Mg Tablet TL Q6HR PRN Nausea / Vomiting Ondansetron HCl 4 mg 11/22/24 18:19 Ondansetron 4 Mg/2 Ml Vial IVP Q6HR PRN Nausea / Vomiting Pantoprazole Sodium 40 mg 11/23/24 07:00 11/23/24 06:08 Pantoprazole 40 Mg Tablet PO 40 mg QDAC NORAH Administration Sodium Chloride 10 ml 11/22/24 18:19 Sodium Chloride Flush 0.9% 10 Ml Syringe IVP PRN PRN NEEDED PER PROVIDER ORDERS Sodium Chloride 10 ml 11/22/24 18:19 11/23/24 10:21 Sodium Chloride Flush 0.9% 10 Ml Syringe IVP 10 ml 0100,0900,1700 NORAH Administration Objective Vital Signs/Intake & Output Reviewed Vital Signs: Yes Vital Signs: Vital Signs x48h Temp Pulse Resp BP Pulse Ox 11/23/24 15:51 36.6 C 82 18 129/68 95 11/23/24 12:25 36.4 C L 70 18 121/60 95 11/23/24 08:10 36.5 C 77 18 116/63 96 Intake & Output: Intake & Output 11/20/24 11/21/24 11/22/24 11/23/24 23:59 23:59 23:59 23:59 Intake Total 1000 / 1000 700 / 700 Balance 1000 / 1000 700 / 700 Weight (kg) 67.5 kg Objective General Appearance: positive No acute distress and Alert Eyes Bilateral: positive Normal inspection ENT: positive ENT inspection nml Neck: positive Nml inspection Respiratory: positive Chest non-tender and No respiratory distress Cardiovascular: positive Regular rate & rhythm Abdomen: positive Non-tender Skin: positive Color nml Extremities: positive Non-tender Neurologic/Psychiatric: positive Other (Oriented to person and place. Remains disoriented to time and situation) Lab Results 11/23/24 04:23 11/23/24 04:23 Other Labs: Lab Results x24hrs 11/23/24 Range/Units 04:23 WBC 8.2 (4.8-10.8) x10^3/uL RBC 4.43 (4.20-5.40) 10^6/uL Hgb 13.0 (12.0-16.0) g/dL Hct 39.9 (37.0-47.0) % MCV 90.1 (81.0-99.0) fL MCH 29.3 (27.0-31.0) pg MCHC 32.6 (32.0-36.0) g/dL RDW 12.1 (12.0-15.0) % Plt Count 195 (130-450) 10^3/uL MPV 10.1 (7.9-10.8) fL Neut # (Auto) 5.4 (1.5-6.6) 10^3/uL Lymph # (Auto) 1.7 (1.5-3.5) 10^3/uL [facility] # (Auto) 0.9 (0.0-1.0) 10^3/uL Eos # (Auto) 0.2 (0.0-0.7) 10^3/uL Baso # (Auto) 0.0 (0.0-0.1) 10^3/uL Absolute Nucleated RBC 0.00 x10^3/uL Nucleated RBC % 0.0 /100WBC Sodium 140 (135-145) mmol/L Potassium 3.8 (3.5-4.5) mmol/L Chloride 109 (101-111) mmol/L Carbon Dioxide 25 (21-32) mmol/L Anion Gap 6.0 (6-13) BUN 12 (6-20) mg/dL Creatinine 0.7 (0.6-1.3) mg/dL Estimated GFR (MDRD) 80 L (>89) Glucose 130 H (74-104) mg/dL Calcium 9.2 (8.5-10.3) mg/dL Assessment/Plan Problem List (1) Encephalopathy: Impression: She was cooperative with physical therapy today Still only oriented x 2 She is well practice that covering her disorientation. When I asked her what year it is she states that she does not keep track of such things. I asked her of the month and she said the same. I asked her the season and she said fall. When I told her that it was in fact November she said that is what she said. I reminded her that November is in the spring, and she stated that she meant to say that the weather was bad much like it is in the fall I believe at this point that this is just an advancement of her dementia I have restarted her home regimen including sertraline Medically cleared today, needs SNF per PT (2) Acute UTI: Impression: WBC 8.2 today. De-escalating antibiotics to Augmentin starting tomorrow. She will need 7-day total course (3) Cognitive deficits: Impression: She has a known history of dementia which she denies. She says that the dementia diagnosis is unofficial and only came about a week ago. She states that her son is always making things up and wants to put her in at home. There is extensive documentation in the chart from multiple providers reflecting that she does indeed have moderate dementia with a MoCA score of 17 as of August of this year. This is interesting, as she states that she has not been to a doctor in forever. I convinced the patient that the best course of action would be for her to come into the hospital and receive IV antibiotics for her UTI so that we can establish what her normal level is and where to go from here. She is refusing placement, I am unsure of her capacity to make decisions at this point PT is recommending SNF at discharge. She will likely benefit from long-term memory care placement after that
[2024-11-23] MEDS: ATORVASTATIN 40 MG TABLET PO SCH (20:44)
[2024-11-23] MEDS: lisinopriL 5 MG TABLET PO SCH (21:02)
[2024-11-23] MEDS: NYSTATIN CREAM 15 GM TUBE TOP SCH (22:43)
[2024-11-24 05:12] LABS: BASOPHILS # (AUTO) 0.1 10^3/uL (0.0-0.1); BASOPHILS % (AUTO) 0.8 %; EOSINOPHILS # (AUTO) 0.2 10^3/uL (0.0-0.7); EOSINOPHILS % (AUTO) 2.2 %; HCT - HEMATOCRIT 40.7 % (37.0-47.0); LYMPHOCYTES # (AUTO) 2.1 10^3/uL (1.5-3.5); MEAN CORPUSCULAR HEMOGLOBIN 29.1 pg (27.0-31.0); MEAN CORPUSCULAR HGB CONC 31.9 g/dL (32.0-36.0); MEAN CORPUSCULAR VOLUME 91.3 fL (81.0-99.0); MEAN PLATELET VOLUME 9.6 fL (7.9-10.8); MONOCYTES # (AUTO) 0.9 10^3/uL (0.0-1.0); NEUTROPHILS # (AUTO) 4.4 10^3/uL (1.5-6.6); NEUTROPHILS % (AUTO) 57.7 %; PLT - PLATELET COUNT 182 10^3/uL (130-450); RED BLOOD COUNT 4.46 10^6/uL (4.20-5.40); WHITE BLOOD COUNT 7.7 x10^3/uL (4.8-10.8)
[2024-11-24 05:28] LABS: CALCIUM 9.4 mg/dL (8.5-10.3); CREATININE 0.7 mg/dL (0.6-1.3); POTASSIUM 4.2 mmol/L (3.5-4.5)
[2024-11-24] MEDS: ACETAMINOPHEN 500 MG TABLET PO PRN (07:05)
[2024-11-24] MEDS: MULTIVITAMIN W/MINERALS TABLET PO SCH (08:26)
[2024-11-24] MEDS: CHOLECALCIFEROL 25 MCG TABLET PO SCH (08:26)
[2024-11-24] MEDS: SERTRALINE 50 MG TABLET PO SCH (08:26)
[2024-11-24] MEDS: lisinopriL 5 MG TABLET PO SCH (08:26)
[2024-11-24] MEDS: AMOX/CLAV 875 MG/125 MG TABLET PO SCH (08:26)
--- NOTE | 2024-11-24 12:00 | PROVIDER PROGRESS NOTE ---
Subjective Prog Note Date Prog Note Date: 11/24/24 Subjective Pt reports feeling: No change Current Medications Current Medications Current Medications: Current Medications Generic Name Dose Route Start Last Admin Trade Name Freq PRN Reason Stop Dose Admin Acetaminophen 1,000 mg 11/22/24 16:03 11/24/24 07:05 Acetaminophen 500 Mg Tablet PO 1,000 mg Q6H PRN Administration Mild Pain Or Fever>38c(100.4f) Acetaminophen 650 mg 11/22/24 18:19 Acetaminophen 325 Mg Tablet PO Q4HR PRN Pain 1 to 4, or Fever Amoxicillin/Clavulanate Potassium 1 tab 11/24/24 09:00 11/24/24 08:26 Amox/Clav 875 Mg/125 Mg Tablet PO 1 tab BID NORAH Administration Atorvastatin Calcium 40 mg 11/23/24 21:00 11/23/24 20:44 Atorvastatin 40 Mg Tablet PO 40 mg QPM NORAH Administration Cholecalciferol 50 mcg 11/24/24 09:00 11/24/24 08:26 Cholecalciferol 25 Mcg Tablet PO 50 mcg DAILY NORAH Administration Enoxaparin Sodium 40 mg 11/23/24 09:00 11/24/24 08:25 Enoxaparin 40 Mg/0.4 Ml Syringe SUBQ 40 mg DAILY NORAH Administration Lisinopril 5 mg 11/24/24 09:00 11/24/24 08:26 Lisinopril 5 Mg Tablet PO 5 mg DAILY NORAH Administration Multivitamins/Minerals 1 tab 11/24/24 08:00 11/24/24 08:26 Multivitamin W/Minerals Tablet PO 1 tab DAILYWM NORAH Administration Nystatin 1 applic 11/23/24 21:00 11/24/24 10:30 Nystatin Cream 15 Gm Tube TOP Not Given BID NORAH Ondansetron HCl 4 mg 11/22/24 18:19 Ondansetron Odt 4 Mg Tablet TL Q6HR PRN Nausea / Vomiting Ondansetron HCl 4 mg 11/22/24 18:19 Ondansetron 4 Mg/2 Ml Vial IVP Q6HR PRN Nausea / Vomiting Pantoprazole Sodium 40 mg 11/23/24 07:00 11/24/24 07:06 Pantoprazole 40 Mg Tablet PO 40 mg QDAC NORAH Administration Sertraline HCl 50 mg 11/24/24 09:00 11/24/24 08:26 Sertraline 50 Mg Tablet PO 50 mg DAILY NORAH Administration Sodium Chloride 10 ml 11/22/24 18:19 Sodium Chloride Flush 0.9% 10 Ml Syringe IVP PRN PRN NEEDED PER PROVIDER ORDERS Sodium Chloride 10 ml 11/22/24 18:19 11/24/24 08:26 Sodium Chloride Flush 0.9% 10 Ml Syringe IVP 10 ml 0100,0900,1700 NORAH Administration Objective Vital Signs/Intake & Output Reviewed Vital Signs: Yes Vital Signs: Vital Signs x48h Temp Pulse Resp BP Pulse Ox 11/24/24 08:55 36.5 C 69 18 112/54 L 94 11/24/24 04:54 36.6 C 73 18 121/65 93 Intake & Output: Intake & Output 11/21/24 11/22/24 11/23/24 11/24/24 23:59 23:59 23:59 23:59 Intake Total 1000 / 1000 1274 / 1274 774 / 774 Balance 1000 / 1000 1274 / 1274 774 / 774 Weight (kg) 67.5 kg Objective General Appearance: positive No acute distress and Alert Eyes Bilateral: positive Normal inspection ENT: positive ENT inspection nml Neck: positive Nml inspection Respiratory: positive Chest non-tender and No respiratory distress Cardiovascular: positive Regular rate & rhythm Abdomen: positive Non-tender Skin: positive Color nml Extremities: positive Non-tender Neurologic/Psychiatric: positive Other (Oriented to person and place. Remains disoriented to time and situation) Lab Results 11/24/24 04:42 11/24/24 04:42 Other Labs: Lab Results x24hrs 11/24/24 Range/Units 04:42 WBC 7.7 (4.8-10.8) x10^3/uL RBC 4.46 (4.20-5.40) 10^6/uL Hgb 13.0 (12.0-16.0) g/dL Hct 40.7 (37.0-47.0) % MCV 91.3 (81.0-99.0) fL MCH 29.1 (27.0-31.0) pg MCHC 31.9 L (32.0-36.0) g/dL RDW 12.0 (12.0-15.0) % Plt Count 182 (130-450) 10^3/uL MPV 9.6 (7.9-10.8) fL Neut # (Auto) 4.4 (1.5-6.6) 10^3/uL Lymph # (Auto) 2.1 (1.5-3.5) 10^3/uL [place] # (Auto) 0.9 (0.0-1.0) 10^3/uL Eos # (Auto) 0.2 (0.0-0.7) 10^3/uL Baso # (Auto) 0.1 (0.0-0.1) 10^3/uL Absolute Nucleated RBC 0.00 x10^3/uL Nucleated RBC % 0.0 /100WBC Sodium 139 (135-145) mmol/L Potassium 4.2 (3.5-4.5) mmol/L Chloride 109 (101-111) mmol/L Carbon Dioxide 25 (21-32) mmol/L Anion Gap 5.0 L (6-13) BUN 13 (6-20) mg/dL Creatinine 0.7 (0.6-1.3) mg/dL Estimated GFR (MDRD) 80 L (>89) Glucose 157 H (74-104) mg/dL Calcium 9.4 (8.5-10.3) mg/dL Assessment/Plan Problem List (1) Encephalopathy: Impression: Still only oriented x 2 She is well practiced in covering her disorientation. When I asked her what year it is she states that she does not keep track of such things. I asked her of the month and she said the same. I asked her the season and she said fall. When I told her that it was in fact November she said that is what she said. I reminded her that November is in the spring, and she stated that she meant to say that the weather was bad much like it is in the fall I believe at this point that this is just an advancement of her dementia I have restarted her home regimen including sertraline Medically cleared today, needs SNF per PT 11/24/2024: I am continuing her Augmentin for her UTI. She remains medically clear (2) Acute UTI: Impression: WBC 7.7 today. I am continuing her Augmentin, today is day 3 of 7 total antibiotic regimen (3) Cognitive deficits: Impression: She has a known history of dementia which she denies. She says that the dementia diagnosis is unofficial and only came about a week ago. She states that her son is always making things up and wants to put her in at home. There is extensive documentation in the chart from multiple providers reflecting that she does indeed have moderate dementia with a MoCA score of 17 as of August of this year. This is interesting, as she states that she has not been to a doctor in forever. I convinced the patient that the best course of action would be for her to come into the hospital and receive IV antibiotics for her UTI so that we can establish what her normal level is and where to go from here. She is refusing placement, I am unsure of her capacity to make decisions at this point PT is recommending SNF at discharge. She will likely benefit from long-term memory care placement after that
[2024-11-25 05:23] LABS: BASOPHILS # (AUTO) 0.1 10^3/uL (0.0-0.1); EOSINOPHILS # (AUTO) 0.2 10^3/uL (0.0-0.7); EOSINOPHILS % (AUTO) 2.7 %; HCT - HEMATOCRIT 41.3 % (37.0-47.0); LYMPHOCYTES # (AUTO) 2.1 10^3/uL (1.5-3.5); LYMPHOCYTES % (AUTO) 30.4 %; MEAN CORPUSCULAR HEMOGLOBIN 28.8 pg (27.0-31.0); MEAN CORPUSCULAR HGB CONC 31.5 g/dL (32.0-36.0); MEAN CORPUSCULAR VOLUME 91.6 fL (81.0-99.0); MEAN PLATELET VOLUME 9.7 fL (7.9-10.8); MONOCYTES # (AUTO) 0.8 10^3/uL (0.0-1.0); MONOCYTES % (AUTO) 11.2 %; NEUTROPHILS # (AUTO) 3.8 10^3/uL (1.5-6.6); NEUTROPHILS % (AUTO) 54.3 %; PLT - PLATELET COUNT 187 10^3/uL (130-450); RED BLOOD COUNT 4.51 10^6/uL (4.20-5.40); RED CELL DISTRIBUTION WIDTH 11.9 % (12.0-15.0); WHITE BLOOD COUNT 7.1 x10^3/uL (4.8-10.8)
[2024-11-25 05:39] LABS: CALCIUM 9.6 mg/dL (8.5-10.3); CREATININE 0.7 mg/dL (0.6-1.3); POTASSIUM 4.2 mmol/L (3.5-4.5)
--- NOTE | 2024-11-25 17:46 | PROVIDER PROGRESS NOTE ---
Subjective Prog Note Date Prog Note Date: 11/25/24 Subjective Pt reports feeling: No change Current Medications Current Medications Current Medications: Current Medications Generic Name Dose Route Start Last Admin Trade Name Femi PRN Reason Stop Dose Admin Acetaminophen 1,000 mg 11/22/24 16:03 11/24/24 07:05 Acetaminophen 500 Mg Tablet PO 1,000 mg Q6H PRN Administration Mild Pain Or Fever>38c(100.4f) Acetaminophen 650 mg 11/22/24 18:19 Acetaminophen 325 Mg Tablet PO Q4HR PRN Pain 1 to 4, or Fever Amoxicillin/Clavulanate Potassium 1 tab 11/24/24 09:00 11/25/24 08:41 Amox/Clav 875 Mg/125 Mg Tablet PO 1 tab BID NORAH Administration Atorvastatin Calcium 40 mg 11/23/24 21:00 11/24/24 20:45 Atorvastatin 40 Mg Tablet PO 40 mg QPM NORAH Administration Cholecalciferol 50 mcg 11/24/24 09:00 11/25/24 08:42 Cholecalciferol 25 Mcg Tablet PO 50 mcg DAILY NORAH Administration Enoxaparin Sodium 40 mg 11/23/24 09:00 11/25/24 08:42 Enoxaparin 40 Mg/0.4 Ml Syringe SUBQ 40 mg DAILY NORAH Administration Lisinopril 5 mg 11/24/24 09:00 11/25/24 08:41 Lisinopril 5 Mg Tablet PO 5 mg DAILY NORAH Administration Multivitamins/Minerals 1 tab 11/24/24 08:00 11/25/24 08:41 Multivitamin W/Minerals Tablet PO 1 tab DAILYWM NORAH Administration Nystatin 1 applic 11/23/24 21:00 11/25/24 08:42 Nystatin Cream 15 Gm Tube TOP 1 applic BID NORAH Administration Ondansetron HCl 4 mg 11/22/24 18:19 Ondansetron Odt 4 Mg Tablet TL Q6HR PRN Nausea / Vomiting Ondansetron HCl 4 mg 11/22/24 18:19 Ondansetron 4 Mg/2 Ml Vial IVP Q6HR PRN Nausea / Vomiting Pantoprazole Sodium 40 mg 11/23/24 07:00 11/25/24 08:41 Pantoprazole 40 Mg Tablet PO 40 mg QDAC NORAH Administration Sertraline HCl 50 mg 11/24/24 09:00 11/25/24 08:41 Sertraline 50 Mg Tablet PO 50 mg DAILY NORAH Administration Sodium Chloride 10 ml 11/22/24 18:19 Sodium Chloride Flush 0.9% 10 Ml Syringe IVP PRN PRN NEEDED PER PROVIDER ORDERS Sodium Chloride 10 ml 11/22/24 18:19 11/25/24 17:29 Sodium Chloride Flush 0.9% 10 Ml Syringe IVP 10 ml 0100,0900,1700 NORAH Administration Objective Vital Signs/Intake & Output Reviewed Vital Signs: Yes Vital Signs: Vital Signs x48h Temp Pulse Pulse Resp BP Pulse Ox 11/25/24 15:43 36.8 C 55 L 16 102/51 L 96 11/25/24 12:06 36.5 C 63 16 115/51 L 96 Intake & Output: Intake & Output 11/22/24 11/23/24 11/24/24 11/25/24 23:59 23:59 23:59 23:59 Intake Total 1000 / 1000 1274 / 1274 1451 / 1451 1600 / 1600 Balance 1000 / 1000 1274 / 1274 1451 / 1451 1600 / 1600 Weight (kg) 67.5 kg Objective General Appearance: positive No acute distress and Alert Eyes Bilateral: positive Normal inspection ENT: positive ENT inspection nml Neck: positive Nml inspection Respiratory: positive Chest non-tender and No respiratory distress Cardiovascular: positive Regular rate & rhythm Abdomen: positive Non-tender Skin: positive Color nml Extremities: positive Non-tender Neurologic/Psychiatric: positive Other (Oriented to person and place. Remains disoriented to time and situation) Lab Results 11/25/24 05:00 11/25/24 05:00 Other Labs: Lab Results x24hrs 11/25/24 Range/Units 05:00 WBC 7.1 (4.8-10.8) x10^3/uL RBC 4.51 (4.20-5.40) 10^6/uL Hgb 13.0 (12.0-16.0) g/dL Hct 41.3 (37.0-47.0) % MCV 91.6 (81.0-99.0) fL MCH 28.8 (27.0-31.0) pg MCHC 31.5 L (32.0-36.0) g/dL RDW 11.9 L (12.0-15.0) % Plt Count 187 (130-450) 10^3/uL MPV 9.7 (7.9-10.8) fL Neut # (Auto) 3.8 (1.5-6.6) 10^3/uL Lymph # (Auto) 2.1 (1.5-3.5) 10^3/uL [place] # (Auto) 0.8 (0.0-1.0) 10^3/uL Eos # (Auto) 0.2 (0.0-0.7) 10^3/uL Baso # (Auto) 0.1 (0.0-0.1) 10^3/uL Absolute Nucleated RBC 0.00 x10^3/uL Nucleated RBC % 0.0 /100WBC Sodium 139 (135-145) mmol/L Potassium 4.2 (3.5-4.5) mmol/L Chloride 108 (101-111) mmol/L Carbon Dioxide 26 (21-32) mmol/L Anion Gap 5.0 L (6-13) BUN 18 (6-20) mg/dL Creatinine 0.7 (0.6-1.3) mg/dL Estimated GFR (MDRD) 80 L (>89) Glucose 155 H (74-104) mg/dL Calcium 9.6 (8.5-10.3) mg/dL Assessment/Plan Problem List (1) Encephalopathy: Impression: Still only oriented x 2 She is well practiced in covering her disorientation. When I asked her what year it is she states that she does not keep track of such things. I asked her of the month and she said the same. I asked her the season and she said fall. When I told her that it was in fact November she said that is what she said. I reminded her that November is in the spring, and she stated that she meant to say that the weather was bad much like it is in the fall I believe at this point that this is just an advancement of her dementia I have restarted her home regimen including sertraline Medically cleared today, needs SNF per PT 11/24/2024: I am continuing her Augmentin for her UTI. She remains medically clear 11/25/2024: Today is day 4/7 of her antibiotic regimen. Remains medically clear. Continuing Augmentin (2) Acute UTI: Impression: WBC 7.1 today. I am continuing her Augmentin, today is day 4 of 7 total antibiotic regimen (3) Cognitive deficits: Impression: She has a known history of dementia which she denies. She says that the dementia diagnosis is unofficial and only came about a week ago. She states that her son is always making things up and wants to put her in at home. There is extensive documentation in the chart from multiple providers reflecting that she does indeed have moderate dementia with a MoCA score of 17 as of August of this year. This is interesting, as she states that she has not been to a doctor in forever. I convinced the patient that the best course of action would be for her to come into the hospital and receive IV antibiotics for her UTI so that we can establish what her normal level is and where to go from here. She is refusing placement, I am unsure of her capacity to make decisions at this point PT is recommending SNF at discharge. She will likely benefit from long-term memory care placement after that
[2024-11-26 04:42] LABS: BASOPHILS # (AUTO) 0.1 10^3/uL (0.0-0.1); BASOPHILS % (AUTO) 0.9 %; EOSINOPHILS # (AUTO) 0.2 10^3/uL (0.0-0.7); EOSINOPHILS % (AUTO) 3.2 %; LYMPHOCYTES # (AUTO) 1.9 10^3/uL (1.5-3.5); LYMPHOCYTES % (AUTO) 27.4 %; MEAN CORPUSCULAR HEMOGLOBIN 29.7 pg (27.0-31.0); MEAN CORPUSCULAR HGB CONC 33.3 g/dL (32.0-36.0); MEAN CORPUSCULAR VOLUME 89.2 fL (81.0-99.0); MEAN PLATELET VOLUME 9.7 fL (7.9-10.8); MONOCYTES # (AUTO) 0.9 10^3/uL (0.0-1.0); MONOCYTES % (AUTO) 12.4 %; NEUTROPHILS # (AUTO) 3.8 10^3/uL (1.5-6.6); NEUTROPHILS % (AUTO) 55.5 %; PLT - PLATELET COUNT 200 10^3/uL (130-450); RED BLOOD COUNT 4.37 10^6/uL (4.20-5.40); RED CELL DISTRIBUTION WIDTH 11.9 % (12.0-15.0); WHITE BLOOD COUNT 6.9 x10^3/uL (4.8-10.8)
[2024-11-26 04:57] LABS: CALCIUM 9.7 mg/dL (8.5-10.3); CREATININE 0.7 mg/dL (0.6-1.3); POTASSIUM 4.2 mmol/L (3.5-4.5)
[2024-11-26] MEDS: PANTOPRAZOLE 40 MG TABLET PO SCH (06:29)
[2024-11-26 08:24] VITALS: O2SAT 97
--- NOTE | 2024-11-26 11:16 | Discharge Summary ---
Discharge Summary Admit Date: 11/22/24 Discharge Date: 11/26/24 Discharging Provider: Armando Fontaine NP Primary Care Provider: Lee Naqvi Code Status: Attempt Resuscitation DIAGNOSES Admission Diagnoses: Encephalopathy, metabolic Acute UTI Cognitive deficits Discharge Diagnoses with Status of Each Condition: EncephalopathymetabolicI believe this is a progression of her dementia Acute UTIresolving on Augmentin Cognitive deficitmoderate dementia with behavioral disturbance, already established with palliative care. She is discharging to SNF and then will likely need memory care after that HPI History of Present Illness: 79-year-old female who recently lost her to pancreatic cancer. Her cared for at home and had taken over many of the administrative household tasks as she is slowly been developing dementia. She is seen by palliative care, with last visit yesterday. There is a note from her primary care physician from 08/24/2024, where she underwent Robbi cognitive assessment with a score of 17 out of 30 indicating moderate dementia. Family reported multiple falls to her palliative care provider without injury. Family is in the process of getting her moved to a memory care unit, but patient adamantly refuses this. She was found down this morning by her caregiver and brought into the hospital. Son reports that her mentation is worse than normal. In the ER, workup was significant for UTI. She was given 1 g of Rocephin in the ER and hospitalist was contacted for observation for delirium on top of baseline moderate dementia HOSPITAL COURSE Hospital Course: She was brought into the hospital for delirium workup. She has no lateralizing deficits, no concern for stroke. Her UTI is resolving and she has been transitioned to p.o. Augmentin. She has been discharged to SNF and then likely to memory care after that ALLERGIES Allergies Allergy/AdvReac Type Severity Reaction Status Date / Time No Known Drug Allergies Allergy Verified 11/22/24 12:46 MEDICATIONS Ambulatory Orders Medication Instructions Recorded Confirmed sertraline 50 mg tablet 50 mg PO QDAY #30 tabs 10/31/24 11/23/24 cholecalciferol (vitamin D3) 50 50 mcg PO QDAY 11/01/24 11/23/24 mcg (2,000 unit) capsule [id number] acid 0.4 1 tab PO QDAY 11/01/24 11/23/24 mg-lycopene 300 mcg-lutein 250 mcg tablet (Complete Multivitamin Adult 50 Plus) nystatin 100,000 unit/gram topical 1 applic topical BID #30 grams 11/01/24 11/23/24 cream acetaminophen 500 mg tablet 500 - 1,000 mg (1 - 2 x 500 mg) PO 11/21/24 11/23/24 Q6H PRN pain #100 tabs atorvastatin 40 mg tablet 40 mg PO QPM 11/23/24 11/23/24 glipizide 5 mg tablet, extended 15 mg PO ONCE 11/23/24 11/23/24 release 24 hr lisinopril 5 mg tablet 5 mg PO ONCE 11/23/24 11/23/24 PHYSICAL EXAM AT DISCHARGE Vital Signs: Vital Signs x48h Temp Pulse Resp BP Pulse Ox 11/26/24 08:23 36.3 C L 64 18 117/60 97 11/26/24 04:32 36.5 C 60 18 115/59 L 95 General Appearance: positive No acute distress and Alert Eyes Bilateral: positive Normal inspection and PERRL ENT: positive ENT inspection nml Neck: positive Nml inspection Respiratory: positive Chest non-tender Cardiovascular: positive Regular rate & rhythm Peripheral Pulses: positive 2+ Abdomen: positive Non-tender Back: positive Nml inspection Skin: positive Color nml Extremities: positive Non-tender Neurologic/Psychiatric: positive Other (Oriented x 2, pleasantly confused) LABS 11/26/24 04:07 11/26/24 04:07 FOLLOW UP Follow Up: With PCP TIME SPENT Time Spent in Discharge (Minutes): 35 Discharge Plan Discharge Patient Disposition: 03 [facility] DC/Xfer Condition: Fair Prescriptions: New amoxicillin-pot clavulanate 875-125 mg Tablet 1 tab PO BID 3 Days Qty: 6 0RF Continued acetaminophen 500 mg tablet 500 - 1,000 mg PO Q6H PRN (Reason: pain) Qty: 100 0RF sertraline 50 mg tablet 50 mg PO QDAY Qty: 30 2RF Rx Instructions: Take 1/2 tablet once daily for 1 week then increase to full tablet once daily. Complete MV Adult 50 Plus 0.4 mg-300 mcg- 250 mcg tablet 1 tab PO QDAY cholecalciferol (vitamin D3) 50 mcg (2,000 unit) capsule 50 mcg PO QDAY Discontinued atorvastatin 40 mg tablet 40 mg PO QPM glipizide 5 mg tablet extended release 24hr 15 mg PO ONCE lisinopril 5 mg tablet 5 mg PO ONCE nystatin 100,000 unit/gram cream 1 applic topical BID Qty: 30 2RF Diet: Regular Health Concerns: He came into the hospital after being found down at home and family reporting your mentation was not at normal level. You were evaluated in the ER, and it was determined that you were experiencing some delirium because of a UTI. You were brought into the hospital and started on IV antibiotics with good effect. You are transition to oral antibiotics. Physical therapy evaluated you and determined that you need SNF placement at discharge, see your discharging to a facility off [address]. I would like for you to finish out a course of antibiotics. Take 1 pill of Augmentin twice daily until the bottle is empty. I would like for you to work with physical therapy at the new facility to optimize your level of function. Print Language: Palestinian Stand Alone Forms: SNF Discharge, PCP List Follow-up Care: Lee Naqvi FNP [Primary Care Provider] -
[2024-11-26 11:52] VITALS: BP 130/64; TEMP 98.1
== END 2024-11-26 12:40 ==
LOC: MS2 12:35 → ED 12:35 → MS2 18:11
PROVIDERS: ADMIT Nurse Practitioner Acute Care; ATTEND Nurse Practitioner Acute Care
DX: G93.41 Metabolic encephalopathy; G30.9 Alzheimer's disease, unspecified; Z91.81 History of falling; F02.B0 Dementia in other diseases classified elsewhere, moderate, without behavioral disturbance, psychotic disturbance, mood disturbance, and anxiety; N39.0 Urinary tract infection, site not specified; E11.9 Type 2 diabetes mellitus without complications; Z79.899 Other long term (current) drug therapy; Z79.84 Long term (current) use of oral hypoglycemic drugs; Z87.891 Personal history of nicotine dependence; R47.81 Slurred speech; Z63.4 Disappearance and death of family member; R00.8 Other abnormalities of heart beat